=== PATIENT | male | born 1950 | race Caucasian/White ===

== ENCOUNTER → 2016-08-14 | Day surgery (SDC) | payer MEDICARE ==
[~2016-08-14] MED LIST: CALCIUM + D3 E1 EACH PO; NO MEDICATIONS; PROZAC PO; ZENPEP DR 10,01 EACH PO
--- NOTE | ~2016-08-14 | OR ---
Unit #: [id number] #: [id number] Patient: CHRISTIANE MARINO [id number] [address] [address] [id number] MR#: [id number] NAME: CHRISTIANE MARINO ROOM: Date of Procedure: 08/14/2016 Admission Date: 08/14/2016 Surgeon: Moshe Hoffmann M.D. : 1950 Attending Physician: Moshe Hoffmann M.D. Primary Care Physician: Cat Pro A.P.R.N. OPERATIVE REPORT PROCEDURE PERFORMED Colonoscopy aborted. INDICATIONS FOR PROCEDURE Average risk for colorectal cancer. MEDICATIONS Monitored anesthesia. POSTOPERATIVE FINDINGS Hard stool in the rectum. Procedure was aborted. DESCRIPTION OF PROCEDURE The patient was explained of the procedure, risks, and benefits along with risks and benefits of anesthesia. He was brought to the endoscopy room. Propofol anesthesia was given. Rectal exam was done, which was normal. Colonoscope was lubricated, passed up the rectum, hard stool was seen. Scope was pulled out. Procedure could not be completed. Gently, the scope was pulled out. No major complications were noted. Dictated by... Tiffany Santiago/rd TD: 08/14/2016 22:23 JOB #: [id number] OPERATIVE REPORT X Moshe Hoffmann MD X PROCEDURE OPERATIVE NOTE
== END | disposition home or self-care (01) ==
LOC: COPS 11:50
DX: Z12.11 Encounter for screening for malignant neoplasm of colon (principal); F17.210 Nicotine dependence, cigarettes, uncomplicated; Z79.899 Other long term (current) drug therapy; Z90.49 Acquired absence of other specified parts of digestive tract; Z90.89 Acquired absence of other organs; Z98.890 Other specified postprocedural states